=== PATIENT | female | born 1960 | race Caucasian/White ===

== ENCOUNTER → 2017-11-07 | Day surgery (SDC) | payer MEDICARE ==
[~2017-11-07] MED LIST: CLONIDINE HCL0.2 MG PO; DICYCLOMINE HCL20 MG PO; FENTANYL CITRATE/PF 100MCG/2 ML INJ ONE; HYDRALAZINE HCL 20 MG/ML VIAL ONE; HYDRALAZINE HCL10 MG PO; HYOSCYAMINE SULFATE 0.5 MG/ML AMP ONE; LABETALOL HCL 20 ML ONE; LABETALOL HCL 5 MG/ML 20ML VIAL ONE; LIDOCAINE HCL 2% LOCAL INJ 5 ML SDV VIAL INJ ONE; LISINOPRIL10 MG PO; METOCLOPRAMIDE HCL 10 MG/2ML VIAL ONE; MIDAZOLAM HCL 2 MG/2 ML VIAL ONE; ONDANSETRON HCL INJ 2 MG/ML VIAL ONE; PROMETHAZINE HCL (IM) 25 MG/ML VIAL ONE; PROPOFOL IV EMULSION 10 MG/ML 50 ML VIAL ONE; ULTRAM 50MG50 MG PO; VENTOLIN HFA18 GM IH
--- NOTE | 2017-11-07 16:23 | Operative Report ---
DATE OF PROCEDURE: November 07, 2017 REFERRING PHYSICIAN: Dr. María Lopez. PROCEDURE PERFORMED: Esophagogastroduodenoscopy with biopsies and a colonoscopy with polypectomy. INDICATIONS FOR ESOPHAGOGASTRODUODENOSCOPY: Upper abdominal pain, nausea and vomiting. INDICATIONS FOR COLONOSCOPY: Colorectal cancer screening, progressive constipation. MEDICATION: Patient was done under MAC. Please see anesthesiologist's note. PROCEDURE: With patient in the left lateral decubitus position, flexible fiberoptic Olympus gastroscope was introduced into the esophagus under direct visualization without any difficulty. There was some patchy erythema noted in distal esophagus. The GE junction appeared somewhat nodular and was biopsied. The scope was then advanced with ease into the stomach. Mucosa overlying the antrum and the body revealed some patchy erythema and mild to moderate edema and biopsies were obtained and sent to stain for H. pylori. An approximately 4 mm ulcer was noted in the peripyloric area without active bleeding that was biopsied. The scope was then advanced with ease through the pylorus all the way to the 2nd portion of the duodenum and it was then withdrawn slowly and some minute ulcers were noted in the proximal 2nd portion as well as in the duodenal bulb without active bleeding or stigmata of recent hemorrhage. The scope was then withdrawn back into the stomach and retroflexed. The mucosa overlying the fundus and cardia appeared to be within normal limits. The scope was then straightened out. The stomach was decompressed. The scope was subsequently withdrawn. Patient tolerated procedure well. IMPRESSION: 1. Distal esophagitis. 2. GE junction, somewhat nodular, biopsied. 3. Gastritis, biopsied. Biopsy sent to stain for H. pylori. 4. Approximately 4 mm ulcer in the peripyloric area without active bleeding, biopsied. 5. Duodenal ulcers, minute, without active bleeding. PLAN: Follow up histology. Initiate Protonix 40 mg 1 p.o. q.a.m. a.c. PROCEDURE: Patient was then turned around and after adequate lubrication of the anal canal a flexible fiberoptic Olympus colonoscope was inserted into the rectum with ease and advanced all the way to the cecum. It was then withdrawn slowly. Mucosa overlying the cecum, ascending colon, transverse colon and descending colon appeared to be within normal limits. Diverticular disease was noted to involve the sigmoid colon. One minute polyp was hot biopsied from the sigmoid colon. The rectum appeared to be within normal limits. The scope was then retroflexed into the distal rectum and small internal hemorrhoids were noted, none of which was actively bleeding. The scope was then straightened out and was subsequently withdrawn. Patient tolerated the procedure well. IMPRESSION 1. Diverticulosis. 2. Sigmoid colon polyp, hot biopsied. 3. Internal hemorrhoids, none actively bleeding. PLAN: Follow up histology. Initiate clear Linzess 145 mcg 1 p.o. q.a.m. a.c. Start high-fiber low-fat diet a high-fiber supplement. Patient might benefit from a followup colonoscopy in 5 years. Job#: [id number] cc:MARÍA LOPEZ MD
== END | disposition home or self-care (01) ==
LOC: OR 09:10
PROVIDERS: ATTEND Internal Medicine Gastroenterology
DX: K59.09 Other constipation (principal); K63.5 Polyp of colon; K26.9 Duodenal ulcer, unspecified as acute or chronic, without hemorrhage or perforation; K25.9 Gastric ulcer, unspecified as acute or chronic, without hemorrhage or perforation; K29.50 Unspecified chronic gastritis without bleeding; K20.9 Esophagitis, unspecified; K31.89 Other diseases of stomach and duodenum; K57.30 Diverticulosis of large intestine without perforation or abscess without bleeding; K64.8 Other hemorrhoids; J44.9 Chronic obstructive pulmonary disease, unspecified; I20.9 Angina pectoris, unspecified; I12.9 Hypertensive chronic kidney disease with stage 1 through stage 4 chronic kidney disease, or unspecified chronic kidney disease; N18.9 Chronic kidney disease, unspecified; F31.9 Bipolar disorder, unspecified; F17.210 Nicotine dependence, cigarettes, uncomplicated; Z01.810 Encounter for preprocedural cardiovascular examination; Z86.73 Personal history of transient ischemic attack (TIA), and cerebral infarction without residual deficits
CPT/HCPCS: 43239; 45384; 93005; J0360; J1980; J2001; J2250; J2405; J2550; J2765; J3490

== ENCOUNTER → 2018-06-12 | Day surgery (SDC) | payer MEDICARE ==
[~2018-06-12] MED LIST changes: +CLONIDINE HCL0.1 MG PO; +Calcium Carbonate PO; +FOLIC ACID1 MG PO; -HYDRALAZINE HCL 20 MG/ML VIAL ONE; -HYOSCYAMINE SULFATE 0.5 MG/ML AMP ONE; -LABETALOL HCL 20 ML ONE; -LABETALOL HCL 5 MG/ML 20ML VIAL ONE; -LIDOCAINE HCL 2% LOCAL INJ 5 ML SDV VIAL INJ ONE; -METOCLOPRAMIDE HCL 10 MG/2ML VIAL ONE; +NICODERM CQ1 EAC1 TOP; +NIFEDIPINE ER30 M1 PO; -ONDANSETRON HCL INJ 2 MG/ML VIAL ONE; +PANTOPRAZOLE SO40 MG PO; -PROMETHAZINE HCL (IM) 25 MG/ML VIAL ONE; +PROPOFOL IV EMULSION 10 MG/ML 20 ML VIAL ONE; -PROPOFOL IV EMULSION 10 MG/ML 50 ML VIAL ONE; +PROZAC20 MG PO; +SUCRALFATE1 GM PO; +ceftin PO
[2018-06-12 13:40] VITALS: BP 139/93
--- NOTE | 2018-06-12 15:00 | Operative Report ---
DATE OF PROCEDURE: June 12, 2018 REFERRING PHYSICIAN: Dr. María Lopez. PROCEDURE PERFORMED: Esophagogastroduodenoscopy with esophageal dilatation. INDICATIONS FOR ESOPHAGOGASTRODUODENOSCOPY: Dysphagia, odynophagia, nausea, and vomiting. MEDICATION: Patient was done under MAC. Please see anesthesiologist's note. PROCEDURE: With patient in left lateral decubitus position, a flexible fiberoptic Olympus gastroscope was introduced into the esophagus under direct visualization without any difficulty. There was some patchy erythema noted in distal esophagus. The esophagus was then dilated to size 52-[place]. The scope was then advanced with ease into the stomach. Mucosa overlying the antrum revealed some patchy areas of erythema and moderate edema and biopsies were obtained and sent to stain for H. pylori. Biopsies were also obtained from the body of the stomach. The pylorus was of normal contour and shape, was intubated with ease. The scope was advanced all the way to the 2nd portion of the duodenum. The scope was then withdrawn slowly. Mucosa overlying the proximal 2nd portion and the duodenal bulb appeared to be within normal limits. The scope was then withdrawn back into the stomach and retroflexed and mucosa overlying the fundus and the cardia appeared to be within normal limits. The scope was then straightened out. The stomach was decompressed. The scope was subsequently withdrawn. Patient tolerated the procedure well. IMPRESSIONS 1. Distal esophagitis. 2. Esophagus dilated to a size 52-[place]rington. 3. Gastritis biopsied. Biopsies sent to stain for Helicobacter pylori. PLAN: Follow up histology. Continue Protonix 40 mg 1 p.o. q.a.m., a.c. Add Carafate 1 g p.o. a.c. t.i.d. and nightly. Patient strong advised to quit smoking. Job#: [id number] cc:MARÍA LOPEZ MD
--- OUTSIDE RECORDS SUMMARY | 2018-06-23 11:57 | XMS REPORT ---
[facility] Address Unknown Phone Unavailable Care Team Providers Care Manufacturing Plant Technician Name Role Phone Unavailable Unavailable Problems This patient has no known problems. Allergies, Adverse Reactions, Alerts This patient has no known allergies or adverse reactions. Medications This patient has no known medications. Encounters Start Date/Time End Date/Time Encounter Type Admission Type Attending [facility] [place] Facility Care Department Encounter ID 2018-05-26 00:00:00 2018-05-26 00:00:00 Outpatient [facility] [id number] 2018-05-15 00:00:00 2018-05-15 00:00:00 Outpatient [facility] [id number] 2018-05-14 00:00:00 2018-05-14 00:00:00 Outpatient [facility] [id number] 2018-05-06 00:00:00 2018-05-06 00:00:00 Outpatient [facility] [id number] 2018-04-28 00:00:00 2018-04-28 00:00:00 Outpatient [facility] [id number] 2018-04-24 00:00:00 2018-04-24 00:00:00 Outpatient [facility] [id number] 2018-04-16 00:00:00 2018-04-16 00:00:00 Outpatient [facility] [id number] 2018-04-02 00:00:00 2018-04-02 00:00:00 Outpatient [facility] [id number] 2018-04-02 00:00:00 2018-04-02 00:00:00 Outpatient [facility] [id number] 2018-04-01 00:00:00 2018-04-01 00:00:00 Outpatient [facility] [id number] 2018-02-12 14:31:24 2018-02-12 14:31:24 Outpatient [facility] [id number] 2018-02-05 00:00:00 2018-02-05 00:00:00 Outpatient [facility] [id number] 2018-01-22 00:00:00 2018-01-22 00:00:00 Outpatient [facility] [id number] 2018-01-05 00:00:00 2018-01-05 00:00:00 Outpatient [facility] [id number] 2017-12-16 00:00:00 2017-12-16 00:00:00 Outpatient [facility] [id number] 2017-12-11 11:02:20 2017-12-11 11:02:20 Outpatient [facility] [id number] 2017-12-11 10:32:56 2017-12-11 10:32:56 Outpatient [facility] [id number] 2017-12-11 09:20:17 2017-12-11 09:20:17 Outpatient [facility] [id number]
--- OUTSIDE RECORDS SUMMARY | 2018-06-23 11:57 | XMS REPORT | Clinical Summary ---
Author Author [facility] Organization [facility] Address Unknown Phone Unavailable Care Team Providers Care Ore Smelter Name Role Phone Conchis Barnett PCP Allergies Active Allergy Reactions Severity Noted Date Comments Penicillins Rash, Itching, Nausea and 12/11/2017 Vomiting Current Medications Prescription Sig. Disp. Refills Start End Date Status Date linaclotide (LINZESS) 145 Take 145 mg by mouth Active mcg cap daily. pantoprazole (PROTONIX) Take 40 mg by mouth Active 40 mg delayed release daily. tablet sucralfate (CARAFATE) 1 Take 1 g by mouth 4 times Active gram tablet daily. lisinopril (PRINIVIL, Take 20 mg by mouth 2 Active ZESTRIL) 20 mg tablet times daily. cloNIDine HCl (CATAPRES) Take 0.2 mg by mouth 3 Active 0.2 mg tablet times daily. amLODIPine (NORVASC) 5 mg Take 5 mg by mouth daily. Active tablet clonazePAM (KLONOPIN) 2 Take 2 mg by mouth 2 Active mg tablet times daily as needed for Anxiety. OLANZapine (ZYPREXA) 5 mg Take 5 mg by mouth 3 Active tablet times daily. rOPINIRole (REQUIP) 3 mg Take 3 mg by mouth at Active tablet bedtime nightly. hydrALAZINE (APRESOLINE) Take 1 tablet by mouth 3 12/12/19 Active 10 mg tablet times daily. 18 hydrOXYzine (ATARAX) 50 TAKE 1/2 TABLET BY MOUTH 30 tablet 0 05/06/20 Active mg tabletIndications: UP TO THREE TIMES DAILY 18 Anxiety disorder, FOR ANXIETY AND TAKE UP unspecified type TO 2 TABLETS BY MOUTH AT NIGHT FOR INSOMNIA carBAMazepine (TEGRETOL) Take 1 tablet by mouth 3 90 tablet 0 05/06/20 Active 200 mg tabletIndications: times daily. 18 Bipolar 1 disorder FLUoxetine (PROZAC) 20 mg Take 3 capsules by mouth 90 capsule 0 05/06/20 Active capsuleIndications: daily. 18 Bipolar 1 disorder hydrALAZINE (APRESOLINE) Take 100 mg by mouth 2 12/12/19 Discontin 100 mg tablet times daily. 18 ued FLUoxetine (PROZAC) 40 mg Take 60 mg by mouth 05/06/20 Discontin capsule daily. 18 ued carBAMazepine (TEGRETOL) Take 200 mg by mouth 3 05/06/20 Discontin 200 mg tablet times daily. 18 ued carBAMazepine (TEGRETOL) Take 1 tablet by mouth 3 90 tablet 2 12/12/19 05/06/20 Discontin 200 mg tabletIndications: times daily. 18 18 ued Bipolar 1 disorder FLUoxetine (PROZAC) 20 mg Take 1 tablet by mouth 90 capsule 2 12/12/19 05/06/20 Discontin capsuleIndications: daily for 1 week, then 18 18 ued Bipolar 1 disorder take 2 tablets by mouth daily for 1 week, then take 3 tablets by mouth daily. hydrOXYzine (ATARAX) 50 Can take half pill by 30 tablet 0 12/12/19 01/14/20 Discontin mg tabletIndications: mouth up to three times a 18 18 ued Anxiety disorder, day as needed for anxiety unspecified type and take up to 2 tablets by mouth at night as needed for insomnia. hydrOXYzine (ATARAX) 50 Can take half pill by 30 tablet 0 01/17/20 02/27/20 Discontin mg tabletIndications: mouth up to three times a 18 18 ued Anxiety disorder, day as needed for anxiety unspecified type and take up to 2 tablets by mouth at night as needed for insomnia. hydrOXYzine (ATARAX) 50 Take 1/2 tablet by mouth 30 tablet 0 02/28/20 04/01/20 Discontin mg tabletIndications: up to 3 times a day as 18 18 ued Anxiety disorder, needed for anxiety and unspecified type take up to 2 tablets by mouth at night as needed for insomnia. hydrOXYzine (ATARAX) 50 TAKE 1/2 TABLET BY MOUTH 30 tablet 0 04/01/20 04/30/20 Discontin mg tabletIndications: UP TO THREE TIMES DAILY 18 18 ued Anxiety disorder, FOR ANXIETY AND TAKE UP unspecified type TO 2 TABLETS BY MOUTH AT NIGHT FOR INSOMNIA. Do not take with clonazepam. hydrOXYzine (ATARAX) 50 TAKE 1/2 TABLET BY MOUTH 90 tablet 0 04/30/20 05/05/20 Discontin mg tabletIndications: UP TO THREE TIMES DAILY 18 18 ued Anxiety disorder, FOR ANXIETY AND TAKE UP unspecified type TO 2 TABLETS BY MOUTH AT NIGHT FOR INSOMNIA Hospital, Clinic, or Ordered Dose Route Frequency Start End Date Status Other Facility Date Administered Medication cloNIDine HCl (CATAPRES) 0.2 mg OR ONCE 02/13/20 02/13/20 Ended tablet 0.2 mgIndications: 18 18 Uncontrolled stage 2 hypertension aspirin tablet 325 325 mg OR ONCE 02/13/20 02/13/20 Ended mgIndications: 18 18 Uncontrolled stage 2 hypertension, Chest pain, unspecified type, Dizziness and giddiness Active Problems Problem Noted Date Bipolar 1 disorder 12/11/2017 Essential hypertension, benign 12/11/2017 Tobacco abuse disorder 12/11/2017 Encounters Date Type Specialty Care Team Description 05/06/2018 Orders Only Psychiatry Rayray Jaquez MD Bipolar 1 disorder (Primary Dx) 05/05/2018 Refill [facility] Mariano Blount MD Anxiety disorder, unspecified type 04/30/2018 Refill [facility] Mariano Blount MD Anxiety disorder, unspecified type 04/28/2018 Refill [facility] Mariano Blount MD Anxiety disorder, unspecified type 04/01/2018 Refill Family [facility] Mariano Blount MD Anxiety disorder, unspecified type 03/16/2018 Pharmacy Visit 03/13/2018 Pharmacy Visit 03/03/2018 Pharmacy Visit 02/27/2018 Pharmacy Visit 02/27/2018 Pharmacy Visit 02/26/2018 Refill Family Practice Conchis Barnett DO Anxiety disorder, unspecified type 02/18/2018 Nurse Triage Alejandra Martell RN 02/17/2018 Nurse Triage Irene Flores, RN 02/17/2018 Nurse Triage Vielka Ibrahim RN 02/17/2018 Nurse Triage Irene Flores, RN 02/12/2018 Office Visit Family Practice Unruly Hernandez MD Uncontrolled stage 2 Hanna Novak NP hypertension (Primary Dx); Personal history of noncompliance with medical treatment, presenting hazards to health; Chest pain, unspecified type; Dizziness and giddiness 01/20/2018 Pharmacy Visit 01/16/2018 Pharmacy Visit 01/13/2018 Refill Psychiatry Rayray Jaquez MD Anxiety disorder, unspecified type 01/13/2018 Pharmacy Visit 01/13/2018 Pharmacy Visit 12/11/2017 Ancillary Radiology Conchis Barnett DO Shortness of breath Procedure 12/11/2017 Office Visit Psychiatry Lawrence Marshall, Bipolar 1 disorder Fellow() (Primary Dx); Anxiety disorder, unspecified type 12/11/2017 Office Visit Family Practice Unruly Hernandez MD Essential hypertension, Conchis Barnett DO benign (Primary Dx); Need for vaccination; Tachycardia; Bipolar 1 disorder; Gastroesophageal reflux disease, esophagitis presence not specified; Hypertensive urgency; Tobacco abuse disorder; Alcohol abuse; Shortness of breath; Preventative health care; Encounter for screening mammogram for malignant neoplasm of breast 12/11/2017 Orders Only Family Practice Conchis Barnett DO Bipolar 1 disorder; Alcohol abuse; Essential hypertension, benign 12/11/2017 Pharmacy Visit after 06/14/2017 Immunizations Name Dates Previously Given Next Due TDap (Tetanus Toxoid, 12/11/2017 (Deferred: Other - pt to return for Reduced Diphtheria Toxoid vaccine. ) And Acellular Pertussis, Absorbed) Social History Tobacco Use Types Packs/Day Years Used Date Current Every Day Smoker Cigarettes Tobacco Cessation: Ready to Quit: Yes; Counseling Given: Yes Alcohol Use Drinks/Week oz/Week Comments Yes Sex Assigned at Date Recorded Not on file Last Filed Vital Signs Vital Sign Reading Time Taken Blood Pressure 220/112 02/12/2018 3:32 PM CDT Pulse 107 02/12/2018 2:33 PM CDT Temperature 36.9 C (98.5 F) 02/12/2018 2:33 PM CDT Respiratory Rate 20 02/12/2018 2:33 PM CDT Oxygen Saturation 97% 02/12/2018 3:32 PM CDT Inhaled Oxygen - - Concentration Weight 52.8 kg (116 lb 6.4 oz) 02/12/2018 2:33 PM CDT Height 165.1 cm (5' 5") 02/12/2018 2:33 PM CDT Body Mass Index 19.37 02/12/2018 2:33 PM CDT Plan of Treatment Health Maintenance Due Date Last Done Comments Cervical Cancer Scrn (3 1983 Yrs) Breast Cancer Scrn 2002 (Yearly) Colorectal Cancer Scrn 2012 Annual (FIT/FOBT) Age 50 to 75 IMM Influenza Seasonal 06/08/2018Jun to November (>/=19 yrs) Procedures Procedure Name Priority Date/Time Associated Diagnosis Comments 12 LEAD EKG STAT 02/12/2018 Uncontrolled stage 2 Results for this 3:24 PM CDT hypertension procedure are in the Chest pain, unspecified results section. type Dizziness and giddiness XRAY CHEST 2 VIEWS Routine 12/11/2017 Shortness of breath Results for this 12:08 PM CDT procedure are in the results section. 12 LEAD EKG Routine 12/11/2017 Tachycardia Results for this 9:47 AM CDT procedure are in the results section. after 06/14/2017 Results * 12 LEAD EKG (02/12/2018 3:24 PM) 12 LEAD EKG FOR [facility] Test Date:2018-02-12 Pat Name: CANDI ARMSTRONG Department: Room: Gender: F Associate Director Of Development: [id number] :1961-0 1-12 Requested By: Order Number: Antolin rendon MD: Claritza Hwang M.D. Measurements Intervals [place] Rate: 97 P:72 [place]: 148 QRS: 52 QRSD: 101 T: 73 QT: 428 QTc:546 Interpretive Statements SINUS RHYTHM PROBABLE INFERIOR MYOCARDIAL INFARCTION , PROBABLY OLD POSSIBLE ANTEROLATERAL MYOCARDIAL INFARCTION , OF INDETERMINATE AGE Electronically Signed On 02-12-18 16:17:59 CDT by Claritza Hwang M.D. Performing Organization Address City/State/Zipcode Phone Number SMS * XRAY CHEST 2 VIEWS (12/11/2017 12:08 PM) Impressions Performed At IMPRESSION: SMS No acute thoracic abnormality. Signed By: Josefina Pelayo MD, 12/11/2017 3:13 PM Narrative Performed At EXAMINATION:XRAY CHEST 2 VIEWS SMS INDICATION: shortness of breath COMPARISON:None FINDINGS:PA and lateral views TUBES and LINES:None. LUNGS:Lungs are well inflated.Lungs are clear. There is no evidence of pneumonia or pulmonary edema. PLEURA:No pleural effusion or pneumothorax. HEART AND MEDIASTINUM:The cardiomediastinal silhouette is unremarkable. BONES AND SOFT TISSUES:No acute osseous lesion.Soft tissues are unremarkable. UPPER ABDOMEN: No free air under the diaphragm. Procedure Note Interface, Rad/Mammog In - 12/11/2017 3:18 PM CDT EXAMINATION: XRAY CHEST 2 VIEWS INDICATION: shortness of breath COMPARISON: None FINDINGS: PA and lateral views TUBES and LINES: None. LUNGS: Lungs are well inflated. Lungs are clear. There is no evidence of pneumonia or pulmonary edema. PLEURA: No pleural effusion or pneumothorax. HEART AND MEDIASTINUM: The cardiomediastinal silhouette is unremarkable. BONES AND SOFT TISSUES: No acute osseous lesion. Soft tissues are unremarkable. UPPER ABDOMEN: No free air under the diaphragm. IMPRESSION IMPRESSION: No acute thoracic abnormality. Signed By: Josefina Pelayo MD, 12/11/2017 3:13 PM Performing Organization Address City/[facility] Phone Number SMS * 12 LEAD EKG (12/11/2017 9:47 AM) 12 LEAD EKG FOR [facility] Test Date:2017-12-11 Pat Name: CANDI ARMSTRONG Department: Room: Gender: F Associate Director Of Development: [id number] :1961-0 1-12 Requested By: Order Number: Antolin rendon MD: Claritza Hwang M.D. Measurements Intervals [place] Rate: 113 P: 71 [place]: 156 QRS: 36 QRSD: 90 T:64 QT: 326 QTc:447 Interpretive Statements SINUS TACHYCARDIA LEFT VENTRICULAR HYPERTROPHY AND ST-T CHANGE Electronically Signed On 12-11-17 11:07:03 CDT by Claritza Hwang M.D. Performing Organization Address City/[facility] Phone Number SMS after 06/14/2017
== END | disposition home or self-care (01) ==
LOC: OR 08:56
PROVIDERS: ATTEND Internal Medicine Gastroenterology
DX: K20.9 Esophagitis, unspecified (principal); K29.70 Gastritis, unspecified, without bleeding; K59.00 Constipation, unspecified; R63.4 Abnormal weight loss; I10 Essential (primary) hypertension; J41.0 Simple chronic bronchitis; K25.9 Gastric ulcer, unspecified as acute or chronic, without hemorrhage or perforation; F17.210 Nicotine dependence, cigarettes, uncomplicated; Z88.0 Allergy status to penicillin; Z80.0 Family history of malignant neoplasm of digestive organs
CPT/HCPCS: 43239; 43450; 88305; 88312; 93005; J2250

== ENCOUNTER 2018-07-07 13:44 | Inpatient (IN) | payer MEDICARE ==
[~2018-07-07] VITALS: Ht 157.5 cm; Wt 46.5 kg
[~2018-07-07 13:44] MED LIST changes: -CLONIDINE HCL0.1 MG PO; -Calcium Carbonate PO; -FENTANYL CITRATE/PF 100MCG/2 ML INJ ONE; -FOLIC ACID1 MG PO; -MIDAZOLAM HCL 2 MG/2 ML VIAL ONE; -NICODERM CQ1 EAC1 TOP; -NIFEDIPINE ER30 M1 PO; -PANTOPRAZOLE SO40 MG PO; -PROPOFOL IV EMULSION 10 MG/ML 20 ML VIAL ONE; -SUCRALFATE1 GM PO; -ceftin PO
--- OUTSIDE RECORDS SUMMARY | 2018-07-07 13:47 | XMS REPORT | Clinical Summary ---
Author Author [facility] Organization [facility] Address Unknown Phone Unavailable Care Team Providers Care Computer Processing Scheduler Name Role Phone Conchis Barnett PCP Allergies [...] Bipolar 1 disorder (Primary Dx) 05/05/2018 Refill [facility] Mariano Blount MD Anxiety disorder, unspecified type 04/30/2018 Refill [facility] Mariano Blount MD Anxiety disorder, unspecified type 04/28/2018 Refill [facility] Mariano Blount MD Anxiety disorder, unspecified type 04/01/2018 Refill Family [facility] Mariano Blount MD Anxiety disorder, unspecified type [...] Essential hypertension, benign 12/11/2017 Pharmacy Visit after 07/06/2017 Immunizations Name Dates Previously Given Next Due [...] procedure are in the results section. after 07/06/2017 Results * 12 LEAD EKG (02/12/2018 3:24 PM) 12 LEAD EKG FOR [facility] Test Date:2018-02-12 Pat Name: CANDI ARMSTRONG Department: Room: Gender: F Anthropology Lecturer: [id number] :1961-0 1-12 Requested By: Order Number: Antolin rendon MD: Claritza Hwang M.D. Measurements Intervals [place] Rate: 97 P:72 [place]: 148 QRS: 52 QRSD: 101 T: 73 [...] MD, 12/11/2017 3:13 PM Performing Organization Address City/[facility] Phone Number SMS * 12 LEAD EKG (12/11/2017 9:47 AM) 12 LEAD EKG FOR [facility] Test Date:2017-12-11 Pat Name: CANDI ARMSTRONG Department: Room: Gender: F Anthropology Lecturer: [id number] :1961-0 1-12 Requested By: Order Number: Antolin rendon MD: Claritza Hwang M.D. Measurements Intervals [place] Rate: 113 P: 71 [place]: 156 QRS: 36 QRSD: 90 T:64 QT: 326 QTc:447 Interpretive Statements SINUS TACHYCARDIA LEFT VENTRICULAR HYPERTROPHY AND ST-T CHANGE Electronically Signed On 12-11-17 11:07:03 CDT by Claritza Hwang M.D. Performing Organization Address City/[facility] Phone Number SMS after 07/06/2017
[2018-07-07] MEDS ORDERED: SODIUM CHLORIDE 0.9% 1000ML 1,000 ML IV STA (14:24)
[2018-07-07] MEDS ORDERED: ONDANSETRON HCL INJ 2 MG/ML VIAL IV NR (14:30)
[2018-07-07] MEDS ORDERED: MORPHINE SULFATE INJ 4 MG/ML INJ IV NR (14:30)
[2018-07-07 15:19] LABS: BASOPHILS % 0.1 % (0.0-1.0); HEMATOCRIT 28.2 % (34.2-44.1); HEMOGLOBIN 9.7 g/dL (12.0-16.0); LYMPHOCYTES # (AUTO) 0.6 (1.0-3.2); LYMPHOCYTES % 4.4 % (18.0-39.1); MEAN CORPUSCULAR HEMOGLOBIN 31.7 pg (28-32); MEAN CORPUSCULAR HGB CONC 34.4 g/dL (31-35); MEAN CORPUSCULAR VOLUME 92.2 fL (81-99); MONOCYTES # (AUTO) 0.7 (0.2-0.8); MONOCYTES % 5.5 % (4.4-11.3); NEUTROPHILS # (AUTO) 11.6 (2.1-6.9); NEUTROPHILS % 88.9 % (38.7-80.0); PLATELET COUNT 312 x10e3/uL (140-360); RED BLOOD COUNT 3.06 x10e6/uL (3.6-5.1)
[2018-07-07 15:22] LABS: BILIRUBIN,URINE NEGATIVE (NEGATIVE); CLARITY,URINE CLOUDY (CLEAR); COLOR,URINE YELLOW (YELLOW); KETONES,URINE NEGATIVE (NEGATIVE); LEUKOCYTE ESTERASE ,URINE 2+ (NEGATIVE); NITRITE,URINE NEGATIVE (NEGATIVE); PROTEIN,URINE DIPSTICK TRACE (NEGATIVE); URINE UROBILINOGEN 0.2 mg/dL (0.2 - 1)
[2018-07-07 15:34] LABS: BACTERIA,URINE MANY /HPF; RBC,URINE 0-5 /HPF (0-5); WBC,URINE (MAN) 0-5 /HPF (0-5)
[2018-07-07 15:43] LABS: ALANINE AMINOTRANSFERASE 17 IU/L (0-55); ALBUMIN 2.5 g/dL (3.5-5.0); ALBUMIN/GLOBULIN RATIO 0.6 (0.8-2.0); ALKALINE PHOSPHATASE 245 IU/L (40-150); AMYLASE 18 U/L (25-125); ANION GAP 16.9 mmol/L (8-16); BLOOD UREA NITROGEN 16 mg/dL (7-26); BUN/CREATININE RATIO 16 (6-25); CALCIUM 8.8 mg/dL (8.4-10.2); CARBON DIOXIDE 28 mmol/L (22-29); CHLORIDE 81 mmol/L (98-107); CREATININE, SERUM 0.99 mg/dL (0.57-1.11); EST GLOMERULAR FILTRATION RATE 58 ML/MIN (60-); GLUCOSE 80 mg/dL (74-118); LIPASE 17 U/L (8-78); SODIUM 124 mmol/L (136-145)
[2018-07-07] MEDS ORDERED: SUCRALFATE1 GM PO (15:49)
[2018-07-07 15:58] LABS: POTASSIUM 1.9 mmol/L (3.5-5.1)
[2018-07-07] MEDS ORDERED: POTASSIUM CHLORIDE 10MEQ/100ML 200 ML IV ONE (16:00)
[2018-07-07] MEDS ORDERED: POTASSIUM CHLORIDE 20 MEQ TAB CR PO NR (16:00)
[2018-07-07] MEDS ORDERED: SODIUM CHLORIDE 0.9% 500ML 500 ML ONE (16:36)
--- NOTE | 2018-07-07 18:42 | Diagnostic Imaging Report ---
EXAMINATION: CT of the abdomen and pelvis with contrast. TECHNIQUE: Spiral CT images of the abdomen and pelvis were performed from the lung bases to the lesser trochanters after the intravenous administration of 100 cc of Isovue 370 and the oral administration of water. Coronal and sagittal reformatted images were obtained. COMPARISON: None. CLINICAL HISTORY:Recently diagnosed with gastric and esophageal ulcer on endoscopy per history. Stomach pain. Abdominal pain. DISCUSSION: ABDOMEN/PELVIS: LOWER THORAX:Mild bilateral lower lobe dependent atelectasis. Subsegmental atelectasis versus scarring in the lingula and medial right middle lobe. No consolidation or effusion. HEPATOBILIARY: Mild hepatomegaly, measuring 16.5 cm in the right midclavicular line. Decreased attenuation of the hepatic parenchyma compared to the spleen, consistent with steatosis. No focal lesions. No intrahepatic ductal dilation. Mild dilation of the common bile duct, which measures approximately 1.0 cm in the nikkie hepatis. No radiopaque intraluminal filling defects. GALLBLADDER: No radio-opaque stones or sludge. No wall thickening. SPLEEN: No splenomegaly. PANCREAS: No focal masses or ductal dilatation. Mild pancreatic atrophy. ADRENALS: No adrenal nodules. Mild diffuse thickening of the left adrenal gland KIDNEYS/URETERS: No hydronephrosis, stones, or solid mass lesions. 1.8 cm fluid density partially exophytic simple cyst in the right superior to mid kidney (series 2, image 22). 1.2 cm fluid density simple cyst in the superior pole of the left kidney (series 2, image 19). 1.0 cm mostly exophytic fluid density simple cyst in the right superior pole (sagittal image 31). Ill-defined irregularly enhancing area in the interpolar right kidney which measures approximately 2.1 x 1.9 x 1.9 cm (series 2, image 23 and sagittal image 32). PELVIC ORGANS/BLADDER: Bladder is unremarkable. Uterus is unremarkable. No adnexal masses. PERITONEUM/RETROPERITONEUM: No free air or fluid. LYMPH NODES: No intra-abdominal, retroperitoneal, pelvic or inguinal lymphadenopathy. VESSELS: The celiac trunk,superior and inferior mesenteric and bilateral renal arteries are patent The portal, superior mesenteric and splenic veins are patent. GI TRACT: No bowel dilation or evidence of obstruction. High density material in the stomach lumen and proximal small bowel, which may represent ingestion of bismuth containing antacids. No pericolonic inflammatory changes.. BONES AND SOFT TISSUE: No aggressive lytic lesions. Orthopedic hardware in the left pelvis, traversing the left SI joint,'s soft tissues are grossly unremarkable. Which is intact. No soft tissue abnormalities. IMPRESSION: 1. No acute abdominopelvic abnormalities. No bowel dilation or evidence of obstruction. 2. 2.1 cm ill-defined irregularly enhancing area in the interpolar right kidney, suspicious for an underlying renal mass likely renal cell carcinoma. Recommend contrast-enhanced CT abdomen renal mass protocol for further evaluation. 3. Mild hepatomegaly with fatty infiltration. No focal lesions. 4. Mild diffuse thickening of the left adrenal gland, which may reflect hyperplasia. No focal lesions are noted. 5. Bilateral simple renal cysts. Signed by: Dr. Govind Perez M.D. on 07/07/2018 6:39 PM
[2018-07-07] MEDS ORDERED: ONDANSETRON HCL INJ 2 MG/ML VIAL IV STA (19:09)
[2018-07-07] MEDS ORDERED: MORPHINE SULFATE 2 MG/ML SYR IV NR (19:15)
[2018-07-07] MEDS ORDERED: IOPAMIDOL 370 MG/ML 200 ML INFUS..BTL INJ ONE (19:51)
[2018-07-07] MEDS ORDERED: SODIUM CHLORIDE 0.9% 50ML 50 ML ONE (19:51)
[2018-07-07] MEDS ORDERED: HYDROMORPHONE 2MG/ML 2 MG/ML ML IV NR (21:45)
[2018-07-07] MEDS ORDERED: CLONIDINE HCL0.1 MG PO (22:22)
[2018-07-07] MEDS ORDERED: CLONIDINE HCL 0.1 MG TAB PO PRN ×2 (22:30→22:45)
[2018-07-07] MEDS ORDERED: CLONIDINE HCL 0.2 MG TAB ONE (22:44)
[2018-07-07] MEDS: CLONIDINE HCL 0.2 MG TAB PO SCH (22:50)
[2018-07-07] MEDS: CEFTRIAXONE SOD 1 GM VIAL IV SCH (22:50)
[2018-07-07] MEDS: SODIUM CHLORIDE 0.9% 1000ML 1,000 ML IV SCH (22:50)
[2018-07-08] MEDS: MORPHINE SULFATE 2 MG/ML SYR IV PRN ×3 (01:52→13:37)
[2018-07-08] MEDS: ONDANSETRON HCL INJ 2 MG/ML VIAL IV PRN ×2 (01:53→07:57)
[2018-07-08 05:30] LABS: AMYLASE 18 U/L (25-125); ANION GAP 13.4 mmol/L (8-16); BLOOD UREA NITROGEN 14 mg/dL (7-26); BUN/CREATININE RATIO 18 (6-25); CARBON DIOXIDE 23 mmol/L (22-29); CHLORIDE 95 mmol/L (98-107); CREATININE, SERUM 0.78 mg/dL (0.57-1.11); EST GLOMERULAR FILTRATION RATE > 60 ML/MIN (60-); GLUCOSE 64 mg/dL (74-118); LIPASE 22 U/L (8-78); SODIUM 129 mmol/L (136-145)
[2018-07-08] MEDS: SODIUM CHLORIDE 0.9% 1000ML 1,000 ML IV SCH ×2 (05:44→13:10)
[2018-07-08 05:55] LABS: CALCIUM 7.3 mg/dL (8.4-10.2); POTASSIUM 2.4 mmol/L (3.5-5.1)
[2018-07-08] MEDS ORDERED: POTASSIUM CHLORIDE 20 MEQ TAB CR PO STA (05:57)
[2018-07-08] MEDS ORDERED: CALCIUM CHLORIDE 10% 1.36 MEQ/ML 10ML SYR IV STA (05:57)
[2018-07-08] MEDS ORDERED: POTASSIUM CHLORIDE 20MEQ/100ML 100 ML IV STA (05:57)
[2018-07-08] MEDS ORDERED: CALCIUM CHLORIDE 10% SYRINGE 10 ML IV ONE (06:02)
[2018-07-08] MEDS ORDERED: SODIUM CHLORIDE 0.9% 50ML 50 ML ONE (06:02)
[2018-07-08] MEDS ORDERED: POTASSIUM CHLORIDE 20MEQ/15ML UDC ONE (06:17)
[2018-07-08 06:55] LABS: BASOPHILS % 0.3 % (0.0-1.0); EOSINOPHILS # (AUTO) 0.2 (0.0-0.4); EOSINOPHILS % 2.4 % (0.0-6.0); HEMATOCRIT 26.7 % (34.2-44.1); LYMPHOCYTES # (AUTO) 1.3 (1.0-3.2); LYMPHOCYTES % 12.7 % (18.0-39.1); MEAN CORPUSCULAR HEMOGLOBIN 31.1 pg (28-32); MEAN CORPUSCULAR HGB CONC 31.8 g/dL (31-35); MEAN CORPUSCULAR VOLUME 97.8 fL (81-99); MONOCYTES # (AUTO) 1.4 (0.2-0.8); MONOCYTES % 13.5 % (4.4-11.3); NEUTROPHILS # (AUTO) 7.2 (2.1-6.9); NEUTROPHILS % 70.6 % (38.7-80.0); PLATELET COUNT 260 x10e3/uL (140-360); RED BLOOD COUNT 2.73 x10e6/uL (3.6-5.1); RED CELL DISTRIBUTION WIDTH 17.2 % (11.7-14.4)
[2018-07-08 06:59] LABS: HEMOGLOBIN 8.5 g/dL (12.0-16.0)
[2018-07-08] MEDS: CEFTRIAXONE SOD 1 GM VIAL IV SCH ×2 (09:36→21:28)
[2018-07-08] MEDS ORDERED: PANTOPRAZOLE 40 MG 10ML VIAL IV SCH (12:30)
[2018-07-08] MEDS ORDERED: ACETAMINOPHEN 325 MG TAB PO PRN (12:30)
[2018-07-08] MEDS ORDERED: PANTOPRAZOLE 40 MG 10ML VIAL IV STA (13:14)
[2018-07-08] MEDS ORDERED: PROTONIX 200MG/SODIUM CHLORIDE 0.9% 250 ML BAG IV SCH (13:15)
[2018-07-08] MEDS ORDERED: PROMETHAZINE 12.5MG/ NACL 0.9% 12.5 MG/50 ML BAG IV PRN (13:15)
[2018-07-08] MEDS: LEVOFLOXACIN 250MG/D5W 50ML 50 ML IV SCH (13:37)
[2018-07-08] MEDS: CLONIDINE HCL 0.2 MG TAB PO SCH (14:12)
[2018-07-08 14:13] LABS: ANION GAP 12.4 mmol/L (8-16); BLOOD UREA NITROGEN 11 mg/dL (7-26); BUN/CREATININE RATIO 15 (6-25); CALCIUM 8.6 mg/dL (8.4-10.2); CARBON DIOXIDE 23 mmol/L (22-29); CHLORIDE 97 mmol/L (98-107); CREATININE, SERUM 0.72 mg/dL (0.57-1.11); EST GLOMERULAR FILTRATION RATE > 60 ML/MIN (60-); GLUCOSE 62 mg/dL (74-118); POTASSIUM 3.4 mmol/L (3.5-5.1); SODIUM 129 mmol/L (136-145)
[2018-07-08] MEDS: NICOTINE 14 MG/EA PATCH TOP SCH (14:19)
--- NOTE | 2018-07-08 14:36 | Consultation ---
DATE OF CONSULTATION: July 08, 2018 UROLOGY CONSULTATION REASON FOR CONSULTATION: Renal mass. HISTORY OF PRESENT ILLNESS: The patient is a 57-year-old woman who denies previous urological evaluation. The patient has more express in urge type urinary incontinence. She wears pads all the time. The patient denies urinary tract infections. She denies hematuria. She was admitted to the hospital with and abdominal pain of 5 months duration that has been exacerbated over the past month. Urological consultation was sought based on CT findings of possible renal mass. PAST MEDICAL AND SURGICAL HISTORY 1. Status post appendectomy. 2. Status post left shoulder surgery times 2 following an injury. 3. 1, para 1, by vaginal delivery. 4. Bipolar. ALLERGIES: NONE. CURRENT MEDICATIONS: Refer to the MAR. SOCIAL HISTORY: The patient smokes 1 pack per day. She is disabled due to her back and her left shoulder, as well as being bipolar. She denies ethanol and drug use. FAMILY HISTORY: Noncontributory to the active urological problems, and is consistent with the history of present illness and past medical history, and otherwise . PHYSICAL EXAMINATION GENERAL: A chronically ill-appearing woman lying in bed in no apparent distress. VITALS: She is afebrile. Vital signs have been stable. ABDOMEN: Soft and nondistended. Nontender. No costovertebral angle tenderness. Kidneys are not palpable. For the remaining physical examination systems, please refer to the admission history and physical, as well as the ER sheet. LABORATORY STUDIES: CT scan of the abdomen and pelvis revealed bilateral renal cysts in at 1.93 mm. White blood cell count was 13,000 yesterday and today it is 10,200, hemoglobin 8.5 and platelets 160,000. The patient's sodium is low at 129. The patient's potassium is low at . Calcium is low at 7.3. ASSESSMENT 1. Right renal mass. 2. Bilateral renal cysts. 3. Urinary tract infection: Urine culture and sensitivity pending. 4. Mixed incontinence. 5. Leukocytosis. 6. Anemia. 7. Hyponatremia. 8. Hypokalemia. 9. Hypocalcemia. PLAN 1. Defer to hematologic/oncologic abnormalities to the primary team. 2. Will start the patient on intravenous antibiotics until culture and sensitivities are back. 3. Will order CT renal mass protocol. 4. Will follow the patient as an outpatient for management of her incontinence. Thank you very much for involving us in the care of your patient. We will be happy to follow her along with you, as well as an outpatient. Job#: [id number] RI cc:MARÍA LOPEZ MD
[2018-07-08] MEDS: PANTOPRAZOL 40MG/SOD CHL 0.9% 50 ML IV SCH ×2 (14:58→22:33)
[2018-07-08] MEDS: LORAZEPAM INJ 2 MG/ML VIAL IV PRN ×2 (15:16→21:28)
[2018-07-08 17:00] VITALS: BP 130/76
[2018-07-08] MEDS ORDERED: LISINOPRIL 10 MG TAB PO SCH (17:00)
[2018-07-08] MEDS: FLUOXETINE HCL 20 MG CAP PO SCH (17:00)
[2018-07-08] MEDS: LISINOPRIL 20 MG TAB PO SCH (17:00)
[2018-07-08 17:10] VITALS: BP 130/76
[2018-07-08 20:00] VITALS: BP 164/79
--- NOTE | 2018-07-08 20:39 | Diagnostic Imaging Report ---
EXAMINATION: CT of the abdomen with and without contrast. TECHNIQUE: Spiral CT images of the abdomen were performed from the lung bases to the iliac crests before and after the intravenous administration of 100 cc of Omnipaque 300 and the oral administration of Redicat. Precontrast, arterial, venous and delayed phases were obtained as part of a renal mass protocol. Coronal and sagittal reformatted images were obtained. COMPARISON: CT abdomen and pelvis with contrast 07/07/2018 CLINICAL HISTORY:Abnormal findings on CT scan, renal mass DISCUSSION: LOWER THORAX:Linear opacities in bilateral lower lobes and right middle lobe, likely representing subsegmental atelectasis HEPATOBILIARY: Mild hepatomegaly, measuring 17 cm in the right midclavicular line. No focal lesions. No intrahepatic ductal dilation. Stable mild dilation of the common bile duct. No radiopaque intraluminal filling defects. GALLBLADDER: No radio-opaque stones or sludge. No wall thickening. SPLEEN: No splenomegaly. PANCREAS: No focal masses or ductal dilatation. ADRENALS: No adrenal nodules. KIDNEYS/URETERS: Right: Ill-defined area in the right interpolar kidney is again identified, which measures approximately 3.2 x 2.6 x 2.1 cm (series 4, image 28 and series 101, image 31). This area is hypodense compared to the rest of the renal parenchyma on all phases. Postcontrast images show heterogeneous enhancement of this lesion (41, 65, 156 and 105 HU on precontrast, arterial, venous and delayed phases). A more hypodense 0.9 cm component in its inferior aspect is best visualized on series 7, image 41 and may represent a necrotic component or complicated cyst. Previously described simple cysts in the right superior to mid kidney and right superior pole are stable. No other focal lesions. No hydronephrosis or obstruction. No renal or ureteral calculi. Left: Stable simple cyst in the superior pole the left kidney. No other focal lesions. No hydronephrosis or obstruction. No renal or ureteral calculi. PERITONEUM/RETROPERITONEUM: No free air or fluid. LYMPH NODES: No intra-abdominal, retroperitoneal lymphadenopathy. VESSELS: The celiac trunk,superior and inferior mesenteric and bilateral renal arteries are patent The portal, superior mesenteric and splenic veins are patent. No filling defects in the right renal vein or IVC. GI TRACT: No distention or wall thickening. BONES AND SOFT TISSUE: No bony destructive lesions. No soft tissue abnormalities. IMPRESSION: 1. Ill-defined hypodense area in the right interpolar kidney, which shows postcontrast enhancement, remains suspicious for a renal mass such as RCC, less likely renal lymphoma. A focal pyelonephritis could be considered, in the appropriate clinical setting. Signed by: Dr. Govind Perez M.D. on 07/08/2018 8:36 PM
[2018-07-09] VITALS (7 sets, daily range): BP systolic 126–204; BP diastolic 73–95
[2018-07-09] MEDS: HYDRALAZINE HCL 20 MG/ML VIAL IV PRN (01:02)
[2018-07-09] MEDS ORDERED: SODIUM CHLORIDE 0.9% 50ML 50 ML ONE (01:51)
[2018-07-09] MEDS ORDERED: IOPAMIDOL 370 MG/ML 200 ML INFUS..BTL INJ ONE (01:52)
[2018-07-09] MEDS: PANTOPRAZOL 40MG/SOD CHL 0.9% 50 ML IV SCH ×3 (05:07→15:00)
[2018-07-09 06:07] LABS: % IRON SATURATION 21 % (15-50); ALANINE AMINOTRANSFERASE 12 IU/L (0-55); ALBUMIN 1.7 g/dL (3.5-5.0); ALKALINE PHOSPHATASE 164 IU/L (40-150); BILIRUBIN,DIRECT 0.2 mg/dL (0.0-0.5); BLOOD UREA NITROGEN 7 mg/dL (7-26); BUN/CREATININE RATIO 11 (6-25); CARBON DIOXIDE 20 mmol/L (22-29); CHLORIDE 101 mmol/L (98-107); CREATININE, SERUM 0.64 mg/dL (0.57-1.11); EST GLOMERULAR FILTRATION RATE > 60 ML/MIN (60-); IRON 26 ug/dL (50-170); MAGNESIUM 1.4 MG/DL (1.3-2.1); SODIUM 130 mmol/L (136-145); TOTAL IRON BINDING CAPACITY 122 ug/dL (261-478); TRANSFERRIN 87 mg/dL (180-382)
[2018-07-09 06:27] LABS: FERRITIN 219.03 ng/mL (4.63-204.00)
[2018-07-09 06:31] LABS: GLUCOSE 50 mg/dL (74-118)
[2018-07-09 06:37] LABS: BASOPHILS # (AUTO) 0.1 (0.0-0.1); BASOPHILS % 0.6 % (0.0-1.0); EOSINOPHILS # (AUTO) 0.3 (0.0-0.4); EOSINOPHILS % 3.3 % (0.0-6.0); HEMATOCRIT 24.7 % (34.2-44.1); HEMOGLOBIN 7.7 g/dL (12.0-16.0); LYMPHOCYTES # (AUTO) 1.2 (1.0-3.2); MEAN CORPUSCULAR HGB CONC 31.2 g/dL (31-35); MEAN CORPUSCULAR VOLUME 99.6 fL (81-99); MONOCYTES # (AUTO) 0.8 (0.2-0.8); MONOCYTES % 10.2 % (4.4-11.3); NEUTROPHILS # (AUTO) 5.6 (2.1-6.9); NEUTROPHILS % 70.4 % (38.7-80.0); PLATELET COUNT 316 x10e3/uL (140-360); RED BLOOD COUNT 2.48 x10e6/uL (3.6-5.1); RED CELL DISTRIBUTION WIDTH 17.2 % (11.7-14.4)
[2018-07-09 07:54] LABS: FOLATE 5.8 ng/mL (7.0-15.4)
[2018-07-09 08:31] LABS: HEMATOCRIT 21.3 % (34.2-44.1); HEMOGLOBIN 6.9 g/dL (12.0-16.0)
[2018-07-09] MEDS: MORPHINE SULFATE 2 MG/ML SYR IV PRN ×2 (08:45→15:40)
[2018-07-09] MEDS: CEFTRIAXONE SOD 1 GM VIAL IV SCH ×2 (08:48→22:15)
[2018-07-09] MEDS: LISINOPRIL 20 MG TAB PO SCH ×2 (08:48→15:41)
[2018-07-09] MEDS: FLUOXETINE HCL 20 MG CAP PO SCH ×2 (08:48→15:41)
[2018-07-09] MEDS: NICOTINE 14 MG/EA PATCH TOP SCH (08:48)
[2018-07-09] MEDS ORDERED: SODIUM CHLORIDE 0.9% 250ML 250 ML IV ONE (09:15)
[2018-07-09] MEDS ORDERED: DIPHENHYDRAMINE HCL INJ 50 MG/ML VIAL IV ONE (09:45)
[2018-07-09] MEDS ORDERED: ACETAMINOPHEN 325 MG TAB PO ONE (09:45)
[2018-07-09] MEDS ORDERED: POTASSIUM CHLORIDE 20 MEQ TAB CR PO STA (10:12)
[2018-07-09] MEDS ORDERED: MORPHINE SULFATE INJ 4 MG/ML INJ IV PRN (10:30)
[2018-07-09] MEDS ORDERED: ACETAMINOPHEN/CODEINE 300MG - 30MG TAB PO PRN (10:30)
[2018-07-09] MEDS ORDERED: DEXTROSE 50% SYRINGE 50 ML IV PRN (10:30)
[2018-07-09] MEDS: ALPRAZOLAM 0.5 MG TAB PO SCH ×2 (12:42→20:11)
[2018-07-09] MEDS: CLONIDINE HCL 0.2 MG TAB PO SCH ×2 (12:42→20:30)
[2018-07-09] MEDS ORDERED: ALPRAZOLAM 0.5 MG TAB PO ONE (15:00)
[2018-07-09] MEDS: OYST-CAL-D 500MG TABLET PO SCH (15:40)
[2018-07-09] MEDS ORDERED: MORPHINE SULFATE 2 MG/ML SYR IV PRN (15:45)
[2018-07-09] MEDS ORDERED: BISACODYL 5 MG TAB EC PO ONE (17:30)
[2018-07-09] MEDS: LEVOFLOXACIN 250MG/D5W 50ML 50 ML IV SCH (18:23)
[2018-07-10] VITALS: BP 176/110
[2018-07-10] MEDS: PANTOPRAZOL 40MG/SOD CHL 0.9% 50 ML IV SCH ×2 (03:59→09:02)
[2018-07-10 04:00] VITALS: BP 184/91
[2018-07-10] MEDS: HYDRALAZINE HCL 20 MG/ML VIAL IV PRN (04:00)
[2018-07-10] MEDS: MORPHINE SULFATE 2 MG/ML SYR IV PRN ×2 (04:23→11:19)
[2018-07-10 05:34] LABS: BASOPHILS # (AUTO) 0.1 (0.0-0.1); BASOPHILS % 0.8 % (0.0-1.0); EOSINOPHILS # (AUTO) 0.2 (0.0-0.4); EOSINOPHILS % 2.5 % (0.0-6.0); HEMATOCRIT 30.6 % (34.2-44.1); HEMOGLOBIN 10.4 g/dL (12.0-16.0); LYMPHOCYTES # (AUTO) 1.1 (1.0-3.2); LYMPHOCYTES % 13.9 % (18.0-39.1); MEAN CORPUSCULAR HEMOGLOBIN 30.3 pg (28-32); MEAN CORPUSCULAR VOLUME 89.2 fL (81-99); MONOCYTES # (AUTO) 0.6 (0.2-0.8); MONOCYTES % 7.4 % (4.4-11.3); NEUTROPHILS % 74.8 % (38.7-80.0); PLATELET COUNT 255 x10e3/uL (140-360); RED BLOOD COUNT 3.43 x10e6/uL (3.6-5.1); RED CELL DISTRIBUTION WIDTH 19.9 % (11.7-14.4)
[2018-07-10 05:47] LABS: ANION GAP 9.5 mmol/L (8-16); BLOOD UREA NITROGEN < 5 mg/dL (7-26); CALCIUM 8.1 mg/dL (8.4-10.2); CARBON DIOXIDE 20 mmol/L (22-29); CHLORIDE 106 mmol/L (98-107); CREATININE, SERUM 0.59 mg/dL (0.57-1.11); EST GLOMERULAR FILTRATION RATE > 60 ML/MIN (60-); GLUCOSE 71 mg/dL (74-118); MAGNESIUM 1.2 MG/DL (1.3-2.1); POTASSIUM 3.5 mmol/L (3.5-5.1); SODIUM 132 mmol/L (136-145)
[2018-07-10 05:50] LABS: BUN/CREATININE RATIO 8 (6-25)
[2018-07-10 07:39] VITALS: BP 160/78
[2018-07-10] MEDS: LISINOPRIL 20 MG TAB PO SCH (08:43)
[2018-07-10] MEDS: NICOTINE 14 MG/EA PATCH TOP SCH (08:43)
[2018-07-10] MEDS: OYST-CAL-D 500MG TABLET PO SCH (08:43)
[2018-07-10] MEDS: ALPRAZOLAM 0.5 MG TAB PO SCH (08:43)
[2018-07-10] MEDS: FLUOXETINE HCL 20 MG CAP PO SCH (08:43)
[2018-07-10] MEDS: CLONIDINE HCL 0.2 MG TAB PO SCH (08:43)
[2018-07-10] MEDS ORDERED: FOLIC ACID 1 MG TAB PO SCH (09:00)
[2018-07-10] MEDS ORDERED: Calcium Carbonate PO (09:19)
[2018-07-10] MEDS ORDERED: FOLIC ACID1 MG PO (09:19)
[2018-07-10] MEDS ORDERED: PANTOPRAZOLE SO40 MG PO (09:19)
[2018-07-10] MEDS ORDERED: ceftin PO (09:21)
[2018-07-10] MEDS ORDERED: NIFEDIPINE ER30 M1 PO (09:28)
[2018-07-10] MEDS ORDERED: CALCIUM GLUCONATE 10% INJ 9.3 MEQ in SODIUM CHLORIDE 0.9% 100 ML 100 ML IV ONE (09:30)
[2018-07-10] MEDS ORDERED: NIFEDIPINE CR 30 MG TAB PO SCH (09:30)
[2018-07-10] MEDS ORDERED: MAGNESIUM SULFATE 2GM/50ML 50 ML IV ONE (09:30)
[2018-07-10] MEDS ORDERED: NICODERM CQ1 EAC1 TOP (09:36)
[2018-07-10] MEDS: CEFTRIAXONE SOD 1 GM VIAL IV SCH (10:45)
[2018-07-10 11:27] VITALS: BP 146/78
[2018-07-10 12:31] LABS: HEMATOCRIT 30.6 % (34.2-44.1)
[2018-07-10 12:32] LABS: HEMOGLOBIN 10.4 g/dL (12.0-16.0)
[2018-07-10 16:03] VITALS: BP 152/82
--- NOTE | 2018-07-10 16:59 | Discharge Summary ---
ADMISSION DIAGNOSES 1. Abdominal pain with nausea and vomiting. 2. Right kidney mass. 3. Urinary tract infection. 4. Anemia. 5. Hypokalemia. 6. Hypocalcemia. 7. Hyponatremia. 8. Hypertension. 9. Gastroesophageal reflux disease. 10. Anxiety. 11. Tobacco use. DISCHARGE DIAGNOSES 1. Abdominal pain with nausea and vomiting. 2. Right kidney mass. 3. Urinary tract infection. 4. Anemia. 5. Hypokalemia. 6. Hypocalcemia. 7. Hyponatremia. 8. Hypertension. 9. Gastroesophageal reflux disease. 10. Anxiety. 11. Tobacco use. 12. Decreased folic acid level. HISTORY: Patient has a history of hypertension, peptic ulcer/GERD, depression, vulvar cancer, CVA with left hemiplegia. SURGICAL HISTORY: Patient had an appendectomy and left shoulder surgery. FAMILY HISTORY: Patient's mother and father both have cancer. SOCIAL HISTORY: Patient denies alcohol and illicit drug use. She admits to smoking 1 pack of cigarettes per day. HOSPITAL COURSE: A 57-year-old female complains of constant sharp generalized abdominal pain associated with nausea and vomiting. Pain is improved with heating pad and worse with food. She denies fever. She had diarrhea at home but not in the ER. She complains of chronic urinary frequency but denies hematuria and dysuria. On admission, CT of the abdomen shows no acute abdominopelvic abnormality, no bowel dilation of evidence of obstruction, a 2.1 cm ill-defined irregularly enhancing area in the interpolar right kidney suspicious for renal cell carcinoma, mild hepatomegaly with fatty infiltration, no lesions, bilateral simple renal cysts. Patient's urine culture came back positive for E. coli. GI was consulted, who has done a recent workup on the patient and immediately started her on a Protonix drip and full-liquid diet per her request. After starting full liquids and Protonix drip, patient is feeling much better. She wants to go home. The next day the patient's hemoglobin dropped to 6.9. Patient was given 2 units of PRBCs, which brought the hemoglobin up to 10.4 and was stable prior to discharge. Patient is eating a bland diet and is still requesting to go home. Per GI recommendations, patient needs to stop smoking as he thinks that is where all her symptoms are coming from. Patient will discharge home with Protonix, folic acid, Ceftin, calcium carbonate, and nicotine patch. Patient was informed not to smoke cigarettes while using the patch. She will follow up with Dr. Hart in 2 CAT scan for the mass on the kidney. She will follow up with Dr. Garcia primary care in 1 to 2 weeks. Patient will discharge home with physical therapy and was given a walker prior to discharge. Patient and understand discharge instructions and agree to plan. Vital signs stable, patient afebrile. Dictated by: Lorene Atkins NP IVONE RAE MD Job#: [id number] EV
== END 2018-07-10 15:51 | disposition home health service (06) | DRG 392 ==
LOC: ER 13:44 → ERHOLD 22:24 → MED/SURG3 07-08 16:40
PROVIDERS: ADMIT Internal Medicine; ATTEND Internal Medicine
PROC: 30233N1 Transfusion of Nonautologous Red Blood Cells into Peripheral Vein, Percutaneous Approach (ICD-10-PCS; principal; 2018-07-09)
DX: R10.84 Generalized abdominal pain (principal); C64.1 Malignant neoplasm of right kidney, except renal pelvis; N39.0 Urinary tract infection, site not specified; E44.0 Moderate protein-calorie malnutrition; Z68.1 Body mass index [BMI] 19.9 or less, adult; I69.354 Hemiplegia and hemiparesis following cerebral infarction affecting left non-dominant side; E87.1 Hypo-osmolality and hyponatremia; R11.2 Nausea with vomiting, unspecified; B96.20 Unspecified Escherichia coli [E. coli] as the cause of diseases classified elsewhere; K21.9 Gastro-esophageal reflux disease without esophagitis; N39.46 Mixed incontinence; E86.0 Dehydration; F31.9 Bipolar disorder, unspecified; F17.210 Nicotine dependence, cigarettes, uncomplicated; N28.1 Cyst of kidney, acquired; D72.829 Elevated white blood cell count, unspecified; D64.9 Anemia, unspecified; F41.9 Anxiety disorder, unspecified; E87.6 Hypokalemia; E83.51 Hypocalcemia; Z85.44 Personal history of malignant neoplasm of other female genital organs; Z87.11 Personal history of peptic ulcer disease; K44.9 Diaphragmatic hernia without obstruction or gangrene; Z28.21 Immunization not carried out because of patient refusal
CPT/HCPCS: 36415; 74170; 74177; 80048; 80053; 80076; 81001; 82150; 82607; 82728; 82746; 82948; 83540; 83605; 83690; 83735; 84466; 84702; 85014; 85018; 85025; 86850; 86900; 86920; 87086; 87186; 93005; 96361; 99284; J0360; J0610; J0696; J1200; J1956; J2060; J2270; J2405; J3475; J3480; J7030; J7040; J7050; P9016; Q9967